=== PATIENT | male | born 1985 | race Caucasian/White ===

== ENCOUNTER 2019-03-28 20:54 | Emergency (ER) | payer OTHER, SELFPAY ==
[2019-03-28 21:05] VITALS: BP 129/69; PULSE 78; RESP 20; TEMP 36.2; O2SAT 99; BMI 22.4
[2019-03-28 21:07] VITALS: BP 66/41; PULSE 54
--- NOTE | 2019-03-28 21:14 | PC.NURSE ---
Pt moved to hallway bed, IV being established and EKG being completed. Dr. Chou at bedside.
--- NOTE | 2019-03-28 21:15 | DI.RAD.S_ITS ---
PROCEDURE: XR ACUTE ABDOMEN SERIES INDICATIONS: Abdominal pain TECHNIQUE: One view chest and two views of the abdomen were acquired. COMPARISON: None. FINDINGS: Surgical changes and devices: None. Chest: Lungs are clear. Heart size is normal. No pleural effusions. No pneumoperitoneum. Abdomen: Bowel gas pattern is normal. No suspicious calcifications. Visualized solid organ contours appear normal. Moderate stool Bones: No suspicious bony lesions. IMPRESSION: No specific evidence of bowel obstruction seen at this time although if the patient's symptoms do not improve, continued surveillance with abdominal series radiographs could be performed. Moderate stool Dictated by: Say Choi M.D. on 03/28/2019 at 21:53 Approved by: Say Choi M.D. on 03/28/2019 at 21:54
[2019-03-28 21:22] LABS: Add Manual Diff / Slide Review NO; Basophils Absolute Auto 100 /uL (0-100); Basophils Percent Auto 0.6 % (0-2); Eosinophils Absolute Auto 200 /uL (0-450); Eosinophils Percent Auto 2.3 % (2-4); Hematocrit 44.5 % (41-53); Hemoglobin 15.4 g/dL (13.5-17.5); Lymphocytes Absolute Auto 4400 /uL (1100-4500); Lymphocytes Percent Auto 45.6 % (25-40); Mean Corpuscular HGB Conc 34.7 % (30-36); Mean Corpuscular Hemoglobin 29.4 PG (26-34); Mean Corpuscular Volume 84.6 fL (80-100); Monocytes Absolute Auto 700 /uL (0-900); Monocytes Percent Auto 7.2 % (3-14); Neutrophils Absolute Auto 4300 /uL (1500-7000); Neutrophils Percent Auto 44.3 % (50-75); Platelet Count 302 X10^3/uL (150-400); Red Blood Cell Count 5.26 X10^6/uL (4.5-5.9); Red Cell Distribution Width 13.1 % (11.6-14.8); White Blood Cell Count 9.7 X10^3/uL (4.5-11.0)
[2019-03-28 21:34] LABS: Alanine Aminotransferase 16 IU/L (21-72); Albumin 4.7 g/dL (3.5-5.0); Albumin Globulin Ratio 1.4 (1.0-2.8); Alkaline Phosphatase 54 U/L (38-126); Aspartate Aminotransferase 20 IU/L (17-59); BUN Creatinine Ratio 38.3 (6-22); Bilirubin Total 0.7 mg/dL (0.2-1.3); Blood Urea Nitrogen 23 mg/dL (9-20); Calcium 9.8 mg/dL (8.4-10.2); Carbon Dioxide 28 mmol/L (22-32); Chloride 103 mmol/L (98-107); Estimated Glomerular Filt Rate > 60.0 mL/min (>60); Globulin 3.3 g/dL (1.7-4.1); Glucose 117 mg/dL (70-100); HEMOLYSIS 23 (0-50); Sodium 141 mmol/L (137-145)
[2019-03-28 21:40] LABS: Lactate (Lactic Acid) 1.1 mmol/L (0.7-2.1)
[2019-03-28 21:46] LABS: Troponin I < 0.012 ng/mL (0.01-0.034)
[2019-03-28 21:48] VITALS: BP 124/74; PULSE 76; RESP 16; O2SAT 98
[2019-03-28 21:49] LABS: Procalcitonin < 0.05 ng/mL (<0.5)
[2019-03-28 21:51] LABS: Prolactin 62.1 ng/mL (3.7-17.9)
[2019-03-28] MEDS: SODIUM CHLORIDE 0.9% 1,000 ML 1000 ML IV (22:20)
[2019-03-28] MEDS: POTASSIUM CHLORIDE 20 MEQ/15 ML UDC 40 MEQ PO (22:45)
[2019-03-28 23:13] VITALS: BP 109/68; PULSE 87; RESP 17; O2SAT 97
--- NOTE | 2019-03-28 23:17 | ED_ITS ---
HPI - Syncope General Chief Complaint: Syncope Stated Complaint: blacked out fall Time Seen by Provider: 03/28/19 21:04 Source: patient and family Mode of arrival: ambulatory Limitations: no limitations History of Present Illness HPI narrative: 33-year-old male nonsmoker with no significant medical history presents to the emergency department with his significant other and a chief complaint of a syncopal episode on the toilet. Patient was sitting in attempting to have a bowel movement when he became dizzy, weak and lightheaded and blacked out for about 30 seconds. In falling over he struck his head on a counter and suffered a laceration on his right forehead. He denies any other injury. He was in his normal state of health prior to this event. He has had vagal type occurrences in the past. He denies any change in diet or medications. He denies any significant alcohol, nicotine or street drugs. He is otherwise well and free of complaint and largely in his baseline by the time he checks in Related Data Previous Rx's Medication Instructions Recorded potassium chloride 20 meq PO DAILY #7 tab 03/29/19 Allergies Allergy/AdvReac Type Severity Reaction Status Date / Time No Known Drug Allergies Allergy Verified 03/28/19 21:14 Review of Systems Constitutional Constitutional: Denies chills, Denies fatigue, Denies fever(s), Denies frequent falls, Denies lethargy and Denies weakness Eyes Eyes: Denies change in vision, Denies eye discharge, Denies irritation and Denies loss of vision ENT Ears, Nose, Mouth, and Throat: Denies change in voice, Denies dizziness, Denies neck pain, Denies sore throat and Denies throat swelling Cardiovascular Cardiovascular: Denies chest pain, Reports syncope, Denies irregular heart rhythm, Reports lightheadedness, Denies palpitations, Denies dyspnea, Denies dyspnea on exertion and Denies orthopnea Respiratory Respiratory: Denies cough, Denies dyspnea, Denies dyspnea on exertion and Denies wheezing Gastrointestinal Gastrointestinal: Denies abdominal pain, Denies change in bowel habits, Denies diarrhea, Denies nausea and Denies vomiting Genitourinary Genitourinary: Denies hematuria, Denies flank pain, Denies urinary incontinence and Denies urinary urgency Musculoskeletal Musculoskeletal: Denies back pain, Denies muscle weakness, Denies neck pain, Denies numbness and Denies tingling Integumentary/Breasts Skin/Breast: Denies pruritus, Denies erythema, Denies rash and Reports wounds Neurologic Neurologic: Denies behavioral changes, Denies confusion, Denies dizziness, Reports syncope, Denies frequent falls, Denies loss of vision, Denies numbness, Denies tingling and Denies weakness Psychiatric Psychiatric: Denies anxiety, Denies behavioral changes, Denies confusion, Denies depression, Denies homicidal ideation and Denies suicidal ideation Endocrine Endocrine: Denies fatigue, Denies flushing and Denies palpitations Hematologic/Lymphatic Hematologic/Lymphatic: Denies easy bruising Allergic/Immunologic Allergic/Immunologic: Denies urticaria, Denies throat swelling and Denies wheezing Exam Narrative Exam Narrative: GENERAL: [33] year old patient appears stated age. Well- nourished, well-developed patient, in mild distress. HEAD: 2 cm irregular laceration on right forehead, no depressed skull fracture EYES: Pupils equal round and reactive. Extraocular motions intact. No scleral icterus. No injection or drainage. ENT: Nose without bleeding, purulent drainage. Throat without erythema, tonsillar hypertrophy or exudate. Airway patent. NECK: Trachea midline. Non tender CARDIOVASCULAR: Regular rate and rhythm without murmurs, gallops, or rubs. RESPIRATORY: Clear to auscultation. Breath sounds equal bilaterally. No wheezes, rales, or rhonchi. GASTROINTESTINAL: Abdomen soft, non-tender, nondistended. EXTREMITIES: No edema or joint tenderness. BACK: Nontender without deformity or crepitance. No flank tenderness. NEURO: AOx3. SKIN: No rash or erythema of visible areas Initial Vital Signs Initial Vital Signs: Vital Signs Temperature 97.1 F L 03/28/19 21:05 Pulse Rate 78 03/28/19 21:05 Respiratory Rate 20 03/28/19 21:05 Blood Pressure 129/69 03/28/19 21:05 Pulse Oximetry 99 03/28/19 21:05 Procedures Laceration Repair Laceration 1: Site: face Side (If applicable): right Size (cm): 2 Description: stellate Depth: simple, single layer Local Anesthetic: lidocaine 1% and with epi Amount of anesthesia used (mL): 3 Skin layer closed with: nylon Size (cm): 5-0 Number of sutures: 3 Technique: simple, interrupted Course Orders Ordered: Discontinued Medications Sodium Chloride (Normal Saline 0.9%) 1,000 mls @ 1,000 mls/hr IV BOLUS ONE Stop: 03/28/19 22:12 Last Infusion: 03/28/19 23:33 Dose: 0 mls/hr Documented by: Admin: 03/28/19 22:20 Dose: 1,000 mls/hr Documented by: HERO Potassium Chloride (Potassium Chloride) 40 meq PO NOW ONE Stop: 03/28/19 22:30 Last Admin: 03/28/19 22:45 Dose: 40 meq Documented by: HERO Vital Signs Vital signs: Vital Signs - 8 hr 03/28/19 21:05 03/28/19 21:07 03/28/19 21:48 Temperature 97.1 F L Pulse Rate 78 54 L 76 Respiratory Rate 20 16 Blood Pressure 129/69 Blood Pressure [Left Arm] 66/41 L 124/74 Pulse Oximetry 99 98 03/28/19 23:13 Temperature Pulse Rate 87 Respiratory Rate 17 Blood Pressure Blood Pressure [Left Arm] 109/68 Pulse Oximetry 97 MDM - Syncope Lab Data Result diagrams: 03/28/19 21:15 03/28/19 21:15 Labs: Lab Results 03/28/19 03/28/19 03/28/19 Range/Units 21:15 21:15 21:15 WBC 9.7 (4.5-11.0) X10^3/uL RBC 5.26 (4.5-5.9) X10^6/uL Hgb 15.4 (13.5-17.5) g/dL Hct 44.5 (41-53) % MCV 84.6 (80-100) fL MCH 29.4 (26-34) PG MCHC 34.7 (30-36) % RDW 13.1 (11.6-14.8) % Plt Count 302 (150-400) X10^3/uL Neut % (Auto) 44.3 L (50-75) % Lymph % (Auto) 45.6 H (25-40) % Brantley % (Auto) 7.2 (3-14) % Eos % (Auto) 2.3 (2-4) % Baso % (Auto) 0.6 (0-2) % Neut # (Auto) 4300 (6975-4237) /uL Lymph # (Auto) 4400 (0959-4057) /uL Brantley # (Auto) 700 (0-900) /uL Eos # (Auto) 200 (0-450) /uL Baso # (Auto) 100 (0-100) /uL Sodium 141 (137-145) mmol/L Potassium 3.0 L (3.4-5.1) mmol/L Chloride 103 (98-107) mmol/L Carbon Dioxide 28 (22-32) mmol/L BUN 23 H (9-20) mg/dL Creatinine 0.60 L (0.66-1.25) mg/dL Estimated GFR > 60.0 (>60) mL/min BUN/Creatinine Ratio 38.3 H (6-22) Glucose 117 H (70-100) mg/dL Lactate (0.7-2.1) mmol/L Calcium 9.8 (8.4-10.2) mg/dL Total Bilirubin 0.7 (0.2-1.3) mg/dL AST 20 (17-59) IU/L ALT 16 L (21-72) IU/L Alkaline Phosphatase 54 (38-126) U/L Troponin I < 0.012 (0.01-0.034) ng/mL Total Protein 8.0 (6.3-8.2) g/dL Albumin 4.7 (3.5-5.0) g/dL Globulin 3.3 (1.7-4.1) g/dL Albumin/Globulin Ratio 1.4 (1.0-2.8) Procalcitonin < 0.05 (<0.5) ng/mL Prolactin 62.1 H (3.7-17.9) ng/mL 03/28/19 Range/Units 21:25 WBC (4.5-11.0) X10^3/uL RBC (4.5-5.9) X10^6/uL Hgb (13.5-17.5) g/dL Hct (41-53) % MCV (80-100) fL MCH (26-34) PG MCHC (30-36) % RDW (11.6-14.8) % Plt Count (150-400) X10^3/uL Neut % (Auto) (50-75) % Lymph % (Auto) (25-40) % Brantley % (Auto) (3-14) % Eos % (Auto) (2-4) % Baso % (Auto) (0-2) % Neut # (Auto) (5104-6612) /uL Lymph # (Auto) (5463-7814) /uL Brantley # (Auto) (0-900) /uL Eos # (Auto) (0-450) /uL Baso # (Auto) (0-100) /uL Sodium (137-145) mmol/L Potassium (3.4-5.1) mmol/L Chloride (98-107) mmol/L Carbon Dioxide (22-32) mmol/L BUN (9-20) mg/dL Creatinine (0.66-1.25) mg/dL Estimated GFR (>60) mL/min BUN/Creatinine Ratio (6-22) Glucose (70-100) mg/dL Lactate 1.1 (0.7-2.1) mmol/L Calcium (8.4-10.2) mg/dL Total Bilirubin (0.2-1.3) mg/dL AST (17-59) IU/L ALT (21-72) IU/L Alkaline Phosphatase (38-126) U/L Troponin I (0.01-0.034) ng/mL Total Protein (6.3-8.2) g/dL Albumin (3.5-5.0) g/dL Globulin (1.7-4.1) g/dL Albumin/Globulin Ratio (1.0-2.8) Procalcitonin (<0.5) ng/mL Prolactin (3.7-17.9) ng/mL ECG Data Attestation: I personally reviewed and interpreted this ECG as follows: Prior ECG tracings: not available for review Interpretation: EKG is normal sinus rhythm rate [91 ] and free of any signs of ischemia or ectopy. No ST segmental elevation or depression. No T wave inversion s MDM Narrative Medical decision making narrative: Multiple etiologies for patient's symptoms considered including: [Vasovagal syncope versus dehydration versus other] Patient's symptoms improved or duration of stay with above-stated therapies. Findings and discharge diagnosis discussed with patient/family followed by alicia balization of understanding Return precautions discussed with patient/family whom verbalize understanding. Discharge Plan Departure Patient Disposition: Home Clinical Impression: Vasovagal syncope, Laceration, Acute hypokalemia Discharge Date/Time: 03/29/19 01:22 Instructions: DI for Syncope in Adults (Fainting) Activity Restrictions/Additional Instructions: Please keep the wound clean and dry to the best of your ability. Please monitor for signs of infection such as redness to the skin or increasing pain. Have the sutures removed by your doctor in about 7 days. If you are unable to get into your doctor, we would be happy to remove the sutures in that same timeframe. Prescriptions: New potassium chloride 20 mEq tablet extended release 20 meq PO DAILY Qty: 7 RF: 0 Referrals: [facility] [Outside]
[2019-03-28 23:41] VITALS: BP 120/78; BP 124/81; BP 124/91; PULSE 101; PULSE 92; PULSE 96
[2019-03-29] MEDS: LIDO 1%/SOD BICARB 8.4% (10ML) 10 ML SYRINGE INJ (00:55)
[2019-03-29 01:22] VITALS: BP 127/73; PULSE 84; RESP 15
== END 2019-03-29 01:22 | disposition home or self-care (01) ==
PROVIDERS: Emergency Provider Emergency Medicine
DX: R55 Syncope and collapse (principal); S01.81XA Laceration without foreign body of other part of head, initial encounter; E87.6 Hypokalemia
CPT/HCPCS: 12011; 36415; 36591; 74022; 80053; 83605; 84145; 84146; 84484; 85025; 93005; 96360; 99283; 99285

== ENCOUNTER → 2020-09-29 09:16 | Outpatient (CLI) | payer OTHER, SELFPAY ==
[2020-09-29] MEDS: COVID-19 VACC, Ad26(JANSSEN)/PF 0.5 ML IM (09:35)
== END ==
PROVIDERS: PCP Internal Medicine; Visit Provider Internal Medicine
DX: Z23 Encounter for immunization (principal)
CPT/HCPCS: 0031A; 91303

== ENCOUNTER 2021-12-11 07:15 | Emergency (ER) | payer OTHER, SELFPAY ==
[2021-12-11 07:24] VITALS: BP 114/70; PULSE 63; RESP 16; TEMP 36.8; O2SAT 97; BMI 22.8
--- NOTE | 2021-12-11 07:56 | ED_ITS ---
HPI - Abdominal Pain General Chief Complaint: Abdominal Pain Stated Complaint: Lower rt abd pain, fainted, face lac Time Seen by Provider: 12/11/21 07:34 History of Present Illness HPI narrative: Patient is a 36-year-old healthy male who presents with right lower quadrant pain and a syncopal episode. He woke up this morning and felt very mild right sided pain. He is unsure what it was. He looked it up on the Internet thought that it could be appendicitis he is not himself worked up he passed out. His partner saw him he did hit his face he has a small laceration on the right side of his face. She said it lasted for about 30-40 seconds. He now is feeling fine. He says his abdominal pain is really not that bad. He has no nausea vomiting. No fever or chills no chest pain or palpitations. He says that he is quite squimish and passes out pretty easily. He overall is feeling better. Related Data Home Medications Medication Instructions Recorded Confirmed No Known Home Medications 03/12/20 03/12/20 Allergies Allergy/AdvReac Type Severity Reaction Status Date / Time No Known Drug Allergies Allergy Verified 03/12/20 15:28 Review of Systems Review of Systems Narrative: GENERAL: Denies chills, fatigue, malaise, fever, sweats, travel HEENT: Denies sinus pain, ear pain, sore throat, difficulty swallowing, neck pain RESPIRATORY: Denies dyspnea, cough, wheezing, hemoptysis, sputum. CARDIOVASCULAR:+ syncope GASTROINTESTINAL: See HPI : Denies dysuria, frequency, incontinence, hematuria, urinary retention, flank pain. MUSCULOSKELETAL: Denies weakness, joint pain, or bony pain SKIN: No rash, no erythema, no pruritus NEUROLOGIC: Denies weakness, dizziness, headache, numbness, change in speech, confusion PSYCHIATRIC: No concerning psychosocial issues. 12 point review of systems is negative except for those stated above and HPI Patient History Family History Father Lymphoma Cancer Mother Diabetes mellitus Hypertension Grandfather Diabetes mellitus Grandmother Diabetes mellitus Social History Smoking Status: Never smoker Smoking Status: Never smoker Exam Initial Vital Signs Initial Vital Signs: Vital Signs Temperature 98.3 F 12/11/21 07:24 Pulse Rate 63 12/11/21 07:24 Respiratory Rate 16 12/11/21 07:24 Blood Pressure 114/70 12/11/21 07:24 Pulse Oximetry 97 12/11/21 07:24 GENERAL: Well appearing very pleasant with year old male HEENT: Head atraumatic,EOMI, pupils reactive, face symmetric, moist mucous membranes CARDIOVASCULAR: Regular rate and rhythm without murmurs, rubs or gallops. RESPIRATORY: Breath sounds equal bilaterally, no wheezes rales or rhonchi. ABDOMEN: Soft, minimal tenderness in right lower quadrant no guarding no rebound no right upper quadrant pain no flank pain EXTREMITIES: Normal range of motion, no clubbing or edema. Neurovascularly intact NEUROLOGICAL: Alert and oriented x4.Normal gait and speech. SKIN: Right-side of face 1 cm very superficial laceration but does need Steri- Strips Procedures Laceration Repair Laceration 1: Site: face Side (If applicable): right Size (cm): 2 Description: linear Skin layer closed with: steri-strips Course Orders Ordered: ED Orders 12/11/21 07:56 EKG-12 Lead Stat Vital Signs Vital signs: Vital Signs - 8 hr 12/11/21 07:24 Temperature 98.3 F Pulse Rate 63 Respiratory Rate 16 Blood Pressure 114/70 Pulse Oximetry 97 MDM - Abdominal Pain ECG Data Interpretation: Normal sinus rhythm rate 53 VA interval 152 QRS [address] changes no T- wave inversion MDM Narrative Medical decision making narrative: Patient has very minimal right lower quadrant pain. Discussion workup CT blood work. At this time he feels comfortable watching and waiting. He agrees to return if needed. He understands that the CT would be needed to completely rule out appendicitis. Sounds as though he had a syncopal episode vasovagal reaction which he has had previously. He has a very small laceration on the right side of his face which is repaired with Steri-Strips Discharge Plan Departure Patient Disposition: Home Clinical Impression: Facial laceration, Abdominal pain, Vasovagal episode Instructions: DI for Laceration Repair-Skin Closure Strips, DI for Abdominal Pain-Adult Activity Restrictions/Additional Instructions: *You have been diagnosed with vasovagal reaction, abdominal pain, right facial laceration *What to do: Please monitor your abdominal pain. Return to emergency dep artment feel like it is getting worse. He Steri-Strips should fall off in the next couple of days. You may apply antibiotic ointment to the face once the strips have fallen *Continue to take medications as directed *Follow up with your primary care provider in 2-3 days or call [phone] *Return to ER if you should have increasing abdominal pain, or recurrent episode of passing out, or any new, worsening or concerning symptoms Prescriptions: No Action No Known Home Medications 0RF Referrals: Braden Rodriguez MD [Primary Care Provider] -
== END 2021-12-11 08:30 | disposition home or self-care (01) ==
PROVIDERS: Emergency Provider Emergency Medicine; PCP Internal Medicine
DX: S01.81XA Laceration without foreign body of other part of head, initial encounter (principal); R55 Syncope and collapse; R10.31 Right lower quadrant pain
CPT/HCPCS: 93005; 99282; 99283

== ENCOUNTER 2023-02-28 12:44 | Day surgery (SDC) | payer OTHER, SELFPAY ==
[2023-02-23 15:08] VITALS: BMI 22.1
--- NOTE | 2023-02-27 08:19 | PM.PREOP ---
Pre-operative Note Interval Note History & Physical reviewed/Exam performed by Physician: Yes Changes to H&P: No
[2023-02-28 13:02] VITALS: BMI 22.1
[2023-02-28 13:17] VITALS: BP 132/89; PULSE 63; RESP 17; TEMP 36.8; O2SAT 97
[2023-02-28] MEDS: LACTATED RINGERS 1,000 ML 100 ML IV (13:22)
--- NOTE | 2023-02-28 16:07 | SUR.OPER ---
Supine on padded OR bed, head on pillow, arms padded and tucked at sides, legs uncrossed, safety belt at thigh.
[2023-02-28] MEDS: CEFAZOLIN 2 GM/100 ML PREMIX 100 ML IV (16:57)
[2023-02-28] MEDS: BUPIVACAINE 0.25% (PF) VIAL 30 ML INJ (17:07)
[2023-02-28 17:15] VITALS: BP 138/89; PULSE 97; RESP 23; TEMP 36.3; O2SAT 97
[2023-02-28 17:20] VITALS: BP 132/85; PULSE 74; RESP 18; O2SAT 97
[2023-02-28] MEDS: OXYCODONE/ACETAMINOPHEN 5/325 TABLET 1 TAB PO (17:26)
[2023-02-28 17:29] VITALS: BP 125/90; PULSE 93; RESP 16; O2SAT 98
[2023-02-28 17:32] VITALS: BP 147/117; PULSE 87; RESP 14; O2SAT 97
[2023-02-28 18:14] VITALS: BP 125/78; PULSE 66; RESP 16; TEMP 36.3; O2SAT 97
--- NOTE | 2023-03-03 15:35 | PM.OP.1 ---
Operative Date/Time/Diagnoses Date of procedure: 02/28/23 Time of procedure: 15:35 Pre-op diagnosis: Right inguinal hernia Post-op diagnosis: same Procedure & Clinicians Procedure: Laparoscopic transabdominal preperitoneal repair of right inguinal hernia Same procedure as scheduled: Yes Indications: Symptomatic reducible right inguinal hernia Surgeon: Josh Jorge Professional Advisor: Geronimo Abbott Click Yes if Unassisted: Yes Anesthesia Type: General Operative Notes Findings: No left-sided inguinal hernia defect. Right direct defect only Specimen(s): none sent Estimated Blood Loss (mL): 10 Procedure in detail: The patient was brought to the operating room and placed supine on the table. Bilateral sequential compression devices were applied. General anesthesia was induced and they were intubated with an endotracheal tube. A lebron cath was placed in sterile fashion. They received Ancef prior to skin incision. They were prepped and draped in sterile fashion. A time out was performed to ensure the correct patient, procedure and necessary equipment within the operating room. The skin was infiltrated with 0.25% bupivicaine. A 1 cm supra umbilical midline incision was made. The fascia was sharply incised and the abdomen entered traumatically. A 10mm balloon port was placed and pneumoperitoneum was established at 15mm Hg. Inspection of the abdomen demonstrated no evidence of injury upon entry. Two 5 mm ports were then placed under direct visualization in the right and left lower quadrant lateral to the rectus muscle. There was no evidence of a left undecided inguinal hernia a right direct defect was present The peritoneum 4 cm superior to the deep inguinal ring between the medial umbilical ligament and the anterior superior iliac spine was incised. The medial preperitoneal dissection was carried out into the space of Retzius bluntly, the bladder was swept inferiorly, the pubis and Shane's ligament were identified. Next attention was turned towards the lateral aspect of the peritoneal flap. The preperitoneal fat with the testicular vessels was carefully dissected off the inferior peritoneal flap. The cord was carefully inspected there was no evidence of indirect defect or cord lipoma. The attachements to the direct hernia sac were divided and the direct defect was reduced. A large Bard 3D Max mesh was then placed into the abdomen and positioned such that the myopectineal orifice was completely covered with good overlap on all sides. The peritoneal flap was then repositioned back to its original position and a running V lock suture was used to close the peritoneum such that no bowel could herniate into the preperitoneal space. The area was examined for hemostasis. The 5mm trocars were removed under direct visualization and pneumoperitoneum was deflated through the umbilical trocar, The fascia at the umbilicus was closed with 0-Vicryl in figure of 8 fashion, skin closed with 4-0 Monocyl followed by Dermabond. The sponge and instrument count at the end of the case was correct. Both testicles were entirely within the scrotum at the end of the case. The patient emerged from anesthsia was extubated and transferred to recovery in stable condition. Complications: none Post-operative Condition: stable Disposition: same day surgery
== END 2023-02-28 18:28 | disposition home or self-care (01) ==
PROVIDERS: PCP Internal Medicine; Referring Provider Nurse Anesthetist, Certified Registered; Visit Provider Surgery
PROC: 0YQ54ZZ Repair Right Inguinal Region, Percutaneous Endoscopic Approach (ICD-10-PCS; CPT 49650; principal; 2023-02-28 14:15)
DX: K40.90 Unilateral inguinal hernia, without obstruction or gangrene, not specified as recurrent (principal)
CPT/HCPCS: 49650; J0690; J1100; J1170; J1885; J3010

== ENCOUNTER → 2024-01-02 09:08 | Outpatient (CLI) | payer OTHER, SELFPAY ==
[2024-01-02 10:29] LABS: COVID-19 CEPHEID 4-PLEX PCR Negative (Negative); Influenza A - CEPHEID Flu A NEGATIVE (NEGATIVE); Influenza B - CEPHEID Flu B NEGATIVE (NEGATIVE); Respiratory Syncytial Virus Negative (Negative)
== END ==
PROVIDERS: PCP Internal Medicine; Visit Provider Nurse Practitioner Family
DX: J02.9 Acute pharyngitis, unspecified (principal); R05.1 Acute cough
CPT/HCPCS: 0241U; 87070